=== PATIENT | female | born 1975 | race Caucasian/White ===

== ENCOUNTER 2020-01-28 15:54 | Outpatient (REF) | payer OTHER, SELFPAY | END 2020-01-28 15:55 | disposition home or self-care (01) | LOC: HO.LAB 15:54 | PROVIDERS: Visit Provider Internal Medicine | DX: Z20.828 Contact with and (suspected) exposure to other viral communicable diseases (principal) | CPT/HCPCS: C9803; U0003 ==

== ENCOUNTER → 2020-03-24 15:14 | Outpatient (BNVA) | payer OTHER, SELFPAY | PROVIDERS: PCP Registered Nurse; Visit Provider Student in an Organized Health Care Education/Training Program | DX: Z76.89 Persons encountering health services in other specified circumstances (principal) ==

== ENCOUNTER → 2020-04-15 15:26 | Outpatient (BNVA) | payer OTHER, SELFPAY | PROVIDERS: PCP Registered Nurse; Visit Provider Student in an Organized Health Care Education/Training Program ==

== ENCOUNTER 2020-04-23 10:07 | Outpatient (REF) | payer OTHER, SELFPAY ==
--- NOTE | 2020-04-23 10:11 | EMG_ITS ---
Bilateral median and ulnar motor and sensory studies were performed. Bilateral radial sensory studies were performed and paraspinal muscles were tested. IMPRESSION: [id number] bilateral median neuropathy across carpal tunnel. MD CARMELITA Pedraza/LIBERTY / [id number]
== END 2020-04-23 10:08 | disposition home or self-care (01) ==
LOC: HO.NEURO 10:07
PROVIDERS: Visit Provider Student in an Organized Health Care Education/Training Program
DX: Z13.89 Encounter for screening for other disorder (principal)

== ENCOUNTER → 2020-05-07 14:16 | Outpatient (BNVA) | payer OTHER, SELFPAY | PROVIDERS: PCP Registered Nurse; Visit Provider Student in an Organized Health Care Education/Training Program | DX: G56.03 Carpal tunnel syndrome, bilateral upper limbs (principal) | CPT/HCPCS: 99212 ==

== ENCOUNTER → 2020-05-19 12:43 | Outpatient (BNVA) | payer OTHER, SELFPAY | PROVIDERS: PCP Registered Nurse; Visit Provider Orthopaedic Surgery | DX: G56.02 Carpal tunnel syndrome, left upper limb (principal); G56.01 Carpal tunnel syndrome, right upper limb | CPT/HCPCS: 99202 ==

== ENCOUNTER 2020-06-04 12:28 | Day surgery (SDC) | payer OTHER, SELFPAY ==
[2020-06-03 10:21] VITALS: BMI 27.8
--- NOTE | 2020-06-04 13:03 | W.PM.OPN ---
Operative Note Operative Note Date of Service: 06/04/20 Narrative: Preop diagnosis: 1. Right Carpal tunnel syndrome Postop diagnosis: 1. Right Carpal tunnel syndrome Procedure: 1. Right Carpal tunnel release Surgeon: Kelli Mills MD Anesthesia: local block using 1% lidocaine with epinephrine Findings: Thickened transverse carpal ligament. EBL: Less than 5 mL Specimens: None Complications: None Disposition: Brought to recovery room in stable condition Plan: Follow-up for 7-10 days for wound check and suture removal Indications: The patient is 44 years old, with right carpal tunnel syndrome that has been unresponsive to nonoperative management. The risks and benefits of operative treatment including but not limited to risk of damage to blood vessels, nerves, tendons, infection, persistent pain, persistent symptoms, or possible need for additional surgery were discussed with the patient and the patient wishes to proceed with surgery. Procedure: Once consent was obtained a local block was performed using a combination of 1% lidocaine with epinephrine. The patient was then brought back to the operating suite and placed on the operative table in supine position. A tourniquet was applied to the proximal aspect of the right upper extremity and the limb was prepped and draped in a standard surgical fashion. Once assured that we had a good block, a 1.5 cm longitudinal incision was made centered over the right carpal tunnel. The incision was made through the skin to the subcutaneous tissues using a #15 blade. Dissection was made down to the level of the transverse carpal ligament with care being taken to protect the palmar cutaneous nerve. Once the transverse carpal ligament was clearly visualized, a longitudinal incision was made in the transverse carpal ligament 1st using a #15 blade, then using tenotomy scissors under direct visualization. Care was taken to look for and protect the motor branch of the median nerve when seen in this area. Once satisfied with our carpal tunnel release the wound was copiously irrigated with normal saline and hemostasis was obtained with a brief period of local pressure. The skin edges were reapproximated with some 5.0 nylon suture material and a sterile dressing was applied. The patient appears to have tolerated the procedure well and with no complications. All digits were well vascularized at the conclusion of the case.
--- NOTE | 2020-06-04 14:47 | MHC.SHP ---
Pre-Procedural Eval Section B Chief Complaint: carpal tunnel Allergies: Allergies Allergy/AdvReac Type Severity Reaction Status Date / Time No Known Allergies Allergy Verified 05/19/20 12:56 Plan I have reviewed the history and physical and performed a pertinent physical examination on my patient. No changes have occurred unless specified.
[2020-06-04 15:37] VITALS: BP 107/68; PULSE 60; RESP 17; TEMP 36.9; O2SAT 100
== END 2020-06-04 15:43 ==
LOC: HO.SSS 12:29
PROVIDERS: Visit Provider Orthopaedic Surgery
PROC: (CPT 64721; principal; 2020-06-04 14:10)
DX: G56.01 Carpal tunnel syndrome, right upper limb (principal); R76.0 Raised antibody titer; F32.9 Major depressive disorder, single episode, unspecified
CPT/HCPCS: 64721

== ENCOUNTER → 2020-06-16 12:58 | Outpatient (BNVA) | payer OTHER, SELFPAY | PROVIDERS: Visit Provider Orthopaedic Surgery | DX: G56.01 Carpal tunnel syndrome, right upper limb (principal) | CPT/HCPCS: 99212 ==

== ENCOUNTER 2020-08-12 13:20 | Outpatient (REF) | payer OTHER, SELFPAY ==
--- NOTE | ~2020-08-12 | XR_ITS ---
EXAMINATION: XR WRIST, RIGHT XR HAND, RIGHT CLINICAL INFORMATION: Pain. COMPARISON: Right hand radiographs dated 12/27/2018 TECHNIQUE: AP, oblique, and lateral views of the right wrist. AP, oblique, and lateral views of the right hand. FINDINGS: Right Wrist: No acute fracture or dislocation. No joint space narrowing or marginal osteophytes. No osseous erosion. No abnormal soft tissue calcification. Right Hand: No fracture or dislocation. Normal carpal alignment. No significant joint space narrowing or marginal osteophytes. No osseous erosion. No periarticular osteopenia. No abnormal soft tissue calcification. XR/XR hand RT min 3V IMPRESSION: Right Wrist: Unremarkable examination. Right Hand: Unremarkable examination.
--- NOTE | ~2020-08-12 | XR_ITS ---
EXAMINATION: XR WRIST, RIGHT XR HAND, RIGHT CLINICAL INFORMATION: Pain. COMPARISON: Right hand radiographs dated 12/27/2018 TECHNIQUE: AP, oblique, and lateral views of the right wrist. AP, oblique, and lateral views of the right hand. FINDINGS: Right Wrist: No acute fracture or dislocation. No joint space narrowing or marginal osteophytes. No osseous erosion. No abnormal soft tissue calcification. Right Hand: No fracture or dislocation. Normal carpal alignment. No significant joint space narrowing or marginal osteophytes. No osseous erosion. No periarticular osteopenia. No abnormal soft tissue calcification. XR/XR wrist RT min 3V IMPRESSION: Right Wrist: Unremarkable examination. Right Hand: Unremarkable examination.
== END 2020-08-12 13:21 | disposition home or self-care (01) ==
LOC: HO.HOSX 13:20
PROVIDERS: Visit Provider Orthopaedic Surgery
DX: Z48.811 Encounter for surgical aftercare following surgery on the nervous system (principal); S63.501A Unspecified sprain of right wrist, initial encounter
CPT/HCPCS: 73110; 73130; 99212

== ENCOUNTER → 2020-08-26 13:36 | Outpatient (BNVA) | payer OTHER, SELFPAY | PROVIDERS: Visit Provider Orthopaedic Surgery | DX: G56.03 Carpal tunnel syndrome, bilateral upper limbs (principal); M65.4 Radial styloid tenosynovitis [de Quervain] | CPT/HCPCS: 20550; 99212; J1100 ==

== ENCOUNTER → 2020-09-23 13:11 | Outpatient (BNVA) | payer OTHER, SELFPAY | PROVIDERS: Visit Provider Orthopaedic Surgery | DX: M25.531 Pain in right wrist (principal); M65.4 Radial styloid tenosynovitis [de Quervain]; G56.02 Carpal tunnel syndrome, left upper limb | CPT/HCPCS: 99212 ==

== ENCOUNTER → 2021-07-13 07:56 | Outpatient (RCR) | payer OTHER, SELFPAY ==
--- NOTE | 2020-02-19 16:01 | MHC.OT.DC ---
[address] [phone] F: [phone] Occupational Therapy Discharge Note Provider: DR. CORADO Diagnosis: BILATERAL CARPAL TUNNEL SYNDROME Date of Surgery: 02/19/20 Date of Evaluation: 12/31/19 Date of Discharge: 02/19/20 Treatments to Date: 9 Cancellations to Date: 0 No Shows to Date: 0 Discharge Status: Independent with HEP Discharge Summary: Pt REPORTS INC PAIN WITH OVER TIME WORK ..2 EXTRA HRS DAILY. DEC PAIN ON DAYS OFF. INDEP WITH HEP AND NIGHT CTS SPLINTS WITHOUT IMPROVEMENT . HAS NO SICK TIME ON THIS JOB 4 MONTHS. PT HAS A FOLLOW UP WITH MD IN NEXT MONTH. THUMB OA [facility] PAIN CONTRIBUTING. Electronically Signed By: JOS PARIKH OT CHT CLT Reviewed/agree with student documentation: N/A Therapist: Please Sign and return to therapist, thank you for your referral.
== END | disposition home or self-care (01) ==
LOC: HO.OT 12-31 15:08
PROVIDERS: PCP Registered Nurse; Visit Provider Student in an Organized Health Care Education/Training Program
DX: G56.03 Carpal tunnel syndrome, bilateral upper limbs (principal)
CPT/HCPCS: 97014; 97035; 97110; 97112; 97140; 97165; 97760

== ENCOUNTER 2022-10-19 14:24 | Outpatient (AMB) | payer OTHER, SELFPAY ==
--- NOTE | 2022-10-19 14:35 | MHC.OFFVIS ---
Intake Intake Visit Reasons: New Prob- Lt CTS wants inj and discuss surgery Allergies No Known Allergies Allergy (Verified 09/23/20 14:00) HPI New Prob- Lt CTS wants inj and discuss surgery HPI Details 47-year-old female who presents to the office today for evaluation of left-hand. She continues to experience numbness in the left hand which is getting worse with activity. EMG from 2020: [id number] bilateral median neuropathy across carpal tunnel. PFSH Medical History CARMELO positive Anxiety Bilateral carpal tunnel syndrome Depression Surgical History History of partial hysterectomy Hx of section Family History Mother HTN (hypertension) Asthma Social History Alcohol intake: current Advance Directives Date on File: 12/31/19 Current occupation: rt handed Review of Systems Const All systems reviewed & are unremarkable except as noted in HPI and below Physical Exam Extrem Other: Left wrist: Normal to inspection. Tenderness over the carpal canal. Numbness and tingling over the median nerve distribution of the right hand. Able to make a full fist and fully extend all fingers. Positive Tinel's. Assessment & Plan Assessment & Plan (1) Carpal tunnel syndrome of left wrist: Code(s): G56.02 - Carpal tunnel syndrome, left upper limb Plan We discussed options which include conservative vs operative treatment. Since the patient has been symptomatic for several months and it is impacting their daily life, the decision was made to undergo right carpal tunnel release. We discussed risk, benefits and alternatives. Risk including but not limited to infection, weakness, stiffness, ongoing numbness or tingling. The patient does understand all this and would like to proceed with left carpal tunnel release with Dr. Mills. They will be booked accordingly. Patient Instructions: Scribed for El Castellano PA-C, by Jeyson Pop medical care manager, on 10/19/2022 at 3:00 PM EST. I, El Castellano PA-C, have personally reviewed and agree with the information entered by the scribe. Coding Level of Care Code Est Pt Level 3 (98437) Diagnoses Carpal tunnel syndrome of left wrist G56.02
== END 2022-10-19 14:49 | disposition home or self-care (01) ==
PROVIDERS: PCP Registered Nurse; Visit Provider Physician Assistant
DX: G56.02 Carpal tunnel syndrome, left upper limb (principal)
CPT/HCPCS: 99214

== ENCOUNTER → 2022-10-19 14:24 | Outpatient (BNVA) | payer OTHER, SELFPAY | PROVIDERS: PCP Registered Nurse; Visit Provider Physician Assistant ==

== ENCOUNTER 2024-05-27 14:20 | Emergency (ER) | payer OTHER, SELFPAY ==
[2024-05-27 15:10] VITALS: BP 111/57; PULSE 73; RESP 20; TEMP 37; O2SAT 100; BMI 21.6
--- NOTE | 2024-05-27 15:14 | ED.GENADULT ---
HPI - General Adult General Chief complaint: Abdominal Pain Stated complaint: abd pain Time Seen by Provider: 05/27/24 22:08 Source: patient and RN notes reviewed Mode of arrival: ambulatory Limitations: no limitations History of Present Illness ED Provider: Katy ANDRESW narrative: 48-year-old female presents for evaluation of upper abdominal pain. Patient reports she has had the pain for the last 3 days. She was some associated nausea but no vomiting. She describes her pain as burning in nature She denies any history abdominal surgeries No other complaints or concerns She denies excessive alcohol abuse, NSAID abuse Related Data Previous Rx's ?Medication ?Instructions ?Recorded hydrocodone 5 mg-acetaminophen 325 1 tab PO Q4-6H PRN pain #5 tabs 06/04/20 mg tablet ibuprofen 600 mg tablet 600 mg PO Q8H PRN pain #20 tabs 06/16/20 omeprazole 20 mg capsule,delayed 20 mg PO DAILY #14 caps 05/27/24 release Allergies Allergy/AdvReac Type Severity Reaction Status Date / Time No Known Allergies Allergy Verified 05/27/24 15:13 Review of Systems Constitutional: Constitutional: Denies body ache(s), Denies chills, Denies fever(s) and Denies headache(s) Eyes: Eyes: Denies blurry vision ENT: Denies vertigo, Denies dizziness and Denies headache(s) Cardiovascular: Cardiovascular: Denies chest pain and Denies dyspnea Respiratory: Respiratory: Denies cough and Denies dyspnea Gastrointestinal: Gastrointestinal: Reports abdominal pain, Reports nausea and Denies vomiting Musculoskeletal: Musculoskeletal: Denies back pain Integumentary/Breasts: Skin/Breast: Denies rash Neurologic: Denies vertigo, Denies dizziness and Denies headache(s) Psychiatric: Psychiatric: Denies anxiety PMFSH Past Medical History Medical History CARMELO positive Anxiety Bilateral carpal tunnel syndrome Depression Surgical History History of partial hysterectomy Hx of section Family History Family History Mother HTN (hypertension) Asthma Social History Social History Alcohol intake: current Smoked in Last 30 Days: No Use of substances other than those prescribed or required for medical reasons: Yes Substance Use Type: Marijuana Advance Directives: No Advance Directives Information Provided: No Advance Directives Date on File: 12/31/19 Patient : No Current occupation: rt handed Physical Exam ED Vital Signs: Vital Signs - 24 hr 05/27/24 15:10 05/27/24 21:58 Temperature 98.6 F 97.3 F Pulse Rate 73 70 Respiratory Rate 20 20 Blood Pressure 111/57 L 162/74 H Pulse Oximetry 100 97 Oxygen Delivery Method Room Air Room Air BMI result Body Mass Index 21.6 Const General: healthy appearing, comfortable, no acute distress, alert and awake Nutritional Appearance: well nourished Orientation/consciousness: patient oriented x3 HENMT Head: Yes normocephalic and Yes atraumatic Eyes Eyelids: Yes eyelids normal Conjunctivae: conjunctivae normal Sclerae: sclerae normal Corneas: corneas normal Pupils: Equal, round and reactive pupils present EOM: EOMs intact bilaterally Neck Neck: Yes full ROM Resp Effort & Inspection: normal respiratory effort, able to speak in complete sentences and not labored GI Inspection: No distended Palpation (GI): Soft to palpation, not firm, Tenderness to palpation present (GI) in the epigastrum and in the LUQ; not in the LLQ, not in the RLQ and not in the RUQ, no guarding and not rigid Skin General skin exam: elasticity normal Neuro General: patient oriented x3 Cranial nerves: Yes Equal, round and reactive pupils present and Yes Bilaterally intact EOM present Cognition (Neuro): normal cognition Extrem Other: Moving all extremities well without any obvious deformities Course Course Course Narrative: This is a rapid medical exam performed by Ariel May NP: Additional HPI, ROS, PE not included below will be deferred to primary provider. Patient is a 48-year-old female presenting to the emergency department from urgent care with complaint of epigastric pain since Monday, reports abdominal distention, belching and flatulence, worse to left upper quadrant. Plan: Labs Medications Administered Discontinued Medications Generic Name Dose Route Start Last Admin Trade Name Freq PRN Reason Stop Dose Admin Al Hydroxide/Mg Hydroxide 30 ml 05/27/24 22:52 05/27/24 23:05 Magnesium Hydrox/Alum Hydrox 30 Ml Oral.Susp PO 05/27/24 22:53 30 ml ONCE ONE Administration Lidocaine HCl 15 ml 05/27/24 22:52 05/27/24 23:05 Lidocaine Hcl Viscous 2 % 15 Ml Solution MUCOUS MEM 05/27/24 22:53 15 ml ONCE ONE Administration Ondansetron HCl 4 mg 05/27/24 22:52 05/27/24 23:02 Ondansetron Odt 4 Mg Tab.Marcos KAT 05/27/24 22:53 4 mg ONCE ONE Administration Medical Decision Making Medical Decision Making [facility] Narrative: 48-year-old female with past medical history as above presents for evaluation of upper abdominal pain described as burning in nature. She was left upper quadrant abdominal pain with tenderness. She has no right upper quadrant tenderness and a negative Youngblood's sign. Her labs are reassuring, she has no leukocytosis, no anemia. Shift, renal function electrolytes, and LFTs are all within normal limits. No evidence of biliary obstruction. The patient's pain is most consistent with gastritis, we will treat with a GI cocktail. I do not see any indication for emergent imaging at this time. Low suspicion for infectious process/obstruction Differential Diagnosis Differential Diagnoses: The differential diagnosis associated with the presentation includes Gastritis Gastroenteritis Biliary colic Abdominal pain Lab Data [facility] Lab Attestation statement: I reviewed the patient's lab results. As above 05/27/24 15:23 05/27/24 15:23 Labs: Lab Results 05/27/24 Range/Units 15:23 WBC 6.2 (4.8-10.8) X10*3/uL RBC 5.24 (4.20-5.50) X10*6/uL Hgb 15.3 (12.0-16.0) g/dl Hct 45.4 (37.0-47.0) % MCV 86.6 (80.0-98.0) fL MCH 29.2 (27.0-33.0) pg MCHC 33.7 (31.0-35.0) g/dl RDW 11.9 (11.0-16.0) % Plt Count 220 (160-400) X10*3/uL MPV 9.5 (9.4-12.3) fL Immature Gran % (Auto) 0.3 (0.0-0.4) % Neut % (Auto) 63.0 (45-73) % Lymph % (Auto) 30.3 (20-40) % [place] % (Auto) 5.6 (2-11) % Eos % (Auto) 0.5 (0-4) % Baso % (Auto) 0.3 (0-2) % Lymph # (Auto) 1.9 (1.2-4.9) X10*3/uL [place] # (Auto) 0.4 (0.1-1.2) X10*3/uL Eos # (Auto) 0.0 (0.0-0.4) X10*3/uL Baso # (Auto) 0.0 (0.0-0.2) X10*3/uL Abs Immat Gran (auto) 0.02 (0.00-0.03) X10*3/uL Absolute Neuts (auto) 3.9 (2.0-8.3) x10*3/uL Absolute Nucleated RBC 0.000 (0.0-0.012) X10*3/uL Nucleated RBC % (auto) 0.0 (0.0-0.2) /100WBC Sodium 143 (135-145) mmol/L Potassium 4.6 (3.3-5.1) mmol/L Chloride 107 (96-108) mmol/L Carbon Dioxide 28 (22-29) mmol/L Anion Gap 13 (12-20) BUN 11 (9-16) mg/dL Creatinine 0.75 (0.5-1.4) mg/dL Estim Creat Clear Calc 87.7 Estimated GFR > 60 Random Glucose 92 (60-115) mg/dL Calcium 9.9 (8.4-10.2) mg/dL Total Bilirubin 0.4 (0.0-1.0) mg/dL AST 24 (5-31) U/L ALT 27 (0-31) U/L Alkaline Phosphatase 50 (39-117) U/L Total Protein 8.0 (6.5-8.0) g/dL Albumin 4.6 (3.5-5.0) g/dL Beta HCG, Quant 3 mIU/mL Urine Color Yellow Urine Appearance Clear Urine pH 5.5 (5.0-9.0) Ur Specific [place] 1.010 (1.005-1.025) Urine Protein Negative (Neg-Trace) mg/dL Urine Glucose (UA) Negative (Negative) mg/dL Urine Ketones Negative (Negative) mg/dL Urine Blood Trace H (Negative) Urine Nitrite Negative (Negative) Ur Leukocyte Esterase Negative (Negative) Urine RBC 0-2 (0-2) /HPF Urine WBC 0-5 (0-5) /HPF Ur Squamous Epith Cells 0-2 (0-2) /HPF Urine Bacteria None Seen (None Seen) Hyaline Casts 0-2 (0-2) /LPF Discharge Plan Discharge Clinical Impression: Abdominal pain Patient Disposition: Home, Self-Care Instructions: Abdominal Pain (ED) Additional Instructions: Your symptoms are most consistent with gastritis or peptic ulcer disease. I recommend that you follow-up with GI Take omeprazole 20 mg daily for the next 2 weeks. Follow-up with your primary doctor, return for new or worsening symptoms Prescriptions: New omeprazole 20 mg capsule,delayed release(DR/EC) 20 mg PO DAILY Qty: 14 0RF No Action hydrocodone-acetaminophen 5-325 mg tablet 1 tab PO Q4-6H PRN (Reason: pain) Qty: 5 0RF ibuprofen 600 mg tablet 600 mg PO Q8H PRN (Reason: pain) Qty: 20 0RF Referrals: Edgar Tinajero MD [Physician] - (gastritis) Print Language: Serbian
[2024-05-27 15:29] LABS: Basophils Percent Auto 0.3 % (0-2); Eosinophils Percent Auto 0.5 % (0-4); Hematocrit 45.4 % (37.0-47.0); Hemoglobin 15.3 g/dl (12.0-16.0); Imm Gran Abs Auto 0.02 X10*3/uL (0.00-0.03); Imm Gran Pct Auto 0.3 % (0.0-0.4); Lymphocytes Absolute Auto 1.9 X10*3/uL (1.2-4.9); Lymphocytes Percent Auto 30.3 % (20-40); MANUAL DIFF FLAG NO; Mean Corpuscular HGB Conc 33.7 g/dl (31.0-35.0); Mean Corpuscular Hemoglobin 29.2 pg (27.0-33.0); Mean Corpuscular Volume 86.6 fL (80.0-98.0); Mean Platelet Volume 9.5 fL (9.4-12.3); Monocytes Absolute Auto 0.4 X10*3/uL (0.1-1.2); Monocytes Percent Auto 5.6 % (2-11); Neutrophils Absolute Auto 3.9 x10*3/uL (2.0-8.3); Platelet Count 220 X10*3/uL (160-400); Red Blood Count 5.24 X10*6/uL (4.20-5.50); Red Cell Distribution Width 11.9 % (11.0-16.0); White Blood Count 6.2 X10*3/uL (4.8-10.8)
[2024-05-27 15:33] LABS: Appearance Urine Clear; Color Urine Yellow; Glucose Urine UA Negative (Negative); Leukocyte Esterase Urine Negative (Negative); Nitrite Urine Negative (Negative); PH 5.5 (5.0-9.0); UMIC TRIGGER UACC YES; Urine Blood Trace (Negative); Urine Ketones Negative (Negative); Urine Protein Negative (Neg-Trace)
[2024-05-27 15:36] LABS: Bacteria Urine None Seen (None Seen); Hyaline Casts Urine 0-2 /LPF (0-2); RBC Urine 0-2 /HPF (0-2); Squamous Epithelial Cell Urine 0-2 /HPF (0-2); WBC Urine 0-5 /HPF (0-5)
[2024-05-27 15:49] LABS: HCG Quantitative 3 mIU/mL
[2024-05-27 15:50] LABS: Alanine Aminotransferase 27 U/L (0-31); Albumin Level 4.6 g/dL (3.5-5.0); Alkaline Phosphatase 50 U/L (39-117); Anion Gap 13 (12-20); Aspartate Amino Transferase 24 U/L (5-31); Bilirubin Total 0.4 mg/dL (0.0-1.0); Blood Urea Nitrogen 11 mg/dL (9-16); Calcium 9.9 mg/dL (8.4-10.2); Carbon Dioxide 28 mmol/L (22-29); Chloride 107 mmol/L (96-108); Creatinine Clr Calc Pharmacy 87.7; Estimated Glomerular Filt Rate > 60; Glucose Random 92 mg/dL (60-115); Potassium 4.6 mmol/L (3.3-5.1); Sodium 143 mmol/L (135-145)
[2024-05-27 21:58] VITALS: BP 162/74; PULSE 70; RESP 20; TEMP 36.3; O2SAT 97
[2024-05-27] MEDS: Ondansetron ODT 4 MG TAB.RAPDIS TRANSLINGU (23:02)
[2024-05-27] MEDS: Lidocaine HCl Viscous 2 % 15 ML SOLUTION MUCOUS MEM (23:05)
[2024-05-27] MEDS: Magnesium Hydrox/Alum Hydrox 30 ML ORAL.SUSP PO (23:05)
[2024-05-27 23:38] VITALS: BP 131/73; PULSE 50; RESP 17; TEMP 36.9; O2SAT 99
== END 2024-05-27 23:39 | disposition home or self-care (01) ==
PROVIDERS: Registered Nurse Emergency; Emergency Provider Emergency Medicine
DX: R10.12 Left upper quadrant pain (principal); R10.10 Upper abdominal pain, unspecified; R10.816 Epigastric abdominal tenderness; R11.0 Nausea; R10.2 Pelvic and perineal pain
CPT/HCPCS: 36415; 80053; 81001; 84702; 85025; 99284

== ENCOUNTER 2025-01-21 12:40 | Outpatient (AMB) | payer OTHER, SELFPAY ==
--- NOTE | 2025-01-21 12:50 | A.OFFVIS_ITS ---
Vital Signs 01/21/25 12:53 Height 5 ft 2 in Weight 137 lb BMI 25.1 BP 107/63 Blood Pressure Location Lt brachial Position Sitting Pulse 99 Intake Visit Reasons: gastritis Intake Note: Patient new consult for gastritis Patient cc: burning sensation on and off, patient change her diet for couples month, denies any other GI issues. Electrical Continuity Inspector Required: Yes Accompanied by: Self / Same As Patient Allergies No Known Allergies Allergy (Verified 12/17/24 13:23) Medication List - Last Reconciled 01/21/25 by Juliane Tillman CNP diphenhydramine HCl (Allergy Relief (diphenhydramine)) 50 mg PO BEDTIME PRN HPI HPI gastritis: Details: Patient is a 49-year-old female without significant PMH. Referred by PCP for further evaluation of acid reflux. Patient presents for GI evaluation of persistent sensation of fullness after minimal food intake, ongoing since late 2023 to early 2024 with an acute exacerbation in May 2024 leading to an ER visit and a diagnosis of gastritis. Initial symptoms included severe epigastric burning, pain lasting five days, and vomiting. Omeprazole provided some relief during a two-week course, while a GI cocktail in the ER was notably effective. Following dietary modification (avoida nce of seasonings, citrus, red meat, juice, soda), epigastric pain subsided but constant early satiety persists. Denies diarrhea, reports daily soft BM 2?3x/day without blood or incomplete evacuation. No recent weight gain; notes overall weight decrease since 2020, partly associated with psychosocial stress (recent depression after separation). Reports episodic NSAID (ibuprofen) use (800 mg, ~2x/week, several months), discontinued recently. OTC sleep aid (likely diphenhydramine per product description, 25 mg, 1?2 tabs, not daily), and Mirna (antacid-type agent) used PRN for severe symptoms. H. pylori breath test negative per PCP. Reports hypercholesterolemia, vitamin B and D deficiency, per recent labs. No current/recent medications except per med list. No family hx of GI malignancies; paternal aunt with hx of breast and splenic cancer. Patient denies: fever/chills, n/v, appetite changes, regurgitation, dysphasia, unintentional wt loss or melena/hematochezia. Social hx: -ETOH use, 3-4 beers/4-5 months, cessation since 05/2024 -smokes marijuana daily, denies recreational drug use -former smoker, cessation 2018 - family hx as below -denies personal hx of CA - significant cardiopulmonary history -tolerated anesthesia in the past without difficulty. [facility] Medical History (Updated 01/22/25 @ 12:12 by Juliane Tillman CNP) Colon cancer screening Acid reflux CARMELO positive Depression Anxiety Bilateral carpal tunnel syndrome Surgical History (Updated 01/21/25 @ 12:52 by Lorie Pickett) History of carpal tunnel surgery of right wrist Hx of breast augmentation History of partial hysterectomy Hx of section Family History (Updated 01/21/25 @ 13:08 by Juliane Tillman CNP) Mother HTN (hypertension) Asthma Paternal Aunt Splenic cancer Breast cancer Social History Alcohol intake: current Substance Use Type: Marijuana Advance Directives Date on File: 12/31/19 Current occupation: rt handed Review of Systems Const Reports as per HPI ENT Reports as per HPI Card Reports as per HPI Resp Reports as per HPI GI Reports as per HPI Reports as per HPI Physical Exam Vital Signs: Last Vital Signs Pulse 99 01/21/25 12:53 BP 107/63 01/21/25 12:53 BMI result Body Mass Index 25.1 Const General: healthy appearing, no acute distress and well developed Nutritional Appearance: average body habitus Orientation/consciousness: patient oriented x3 HEENT Head: Yes normal to inspection, Yes normocephalic and Yes atraumatic Face and sinus: Yes normal facial exam Eyes General: appearance normal, both eyes and all related structures Neck Neck: Yes normal visual inspection Resp Effort & Inspection: normal respiratory effort, able to speak in complete sentences, no tracheal deviation and symmetric chest movement Cardio Jugular venous distension: no JVD GI Inspection: Yes normal to inspection and No distended Palpation (GI): Soft to palpation, not firm, nontender and No hepatosplenomegaly present Auscultation: normal bowel sounds Neuro General: patient oriented x3 Gait exam (Neuro): Normal gait present Psych Appearance: grossly normal Mental Status: mental status grossly normal Speech and movement: Normal speech and movement present Affect: normal affect Attitude: cooperative Thought process: Normal thought process present Thought content: Normal thought content present Insight: Good insight present (Psych) Judgement: Good judgement present (Psych) Assessment & Plan Assessment & Plan (1) Acid reflux: Code(s): K21.9 - Gastro-esophageal reflux disease without esophagitis Category: Medical Qualifiers: Esophagitis presence: esophagitis presence not specified Qualified Code(s): K21.9 - Gastro-esophageal reflux disease without esophagitis Plan: Persistent upper GI symptoms (fullness, early satiety, history of gastritis, prior dx, NSAID use, psychosocial contributors) Additional Testing: - EGD (upper endoscopy): Assess for ongoing gastritis, ulcers, masses, or delayed gastric emptying - review outside labs from PCP (requested) - H. pylori: Breath test negative; no further testing unless clinical concern Medication Management: - Continue omeprazole 20 mg, daily use advised. PRN per pt preference - Avoid NSAIDs; recommend acetaminophen if analgesia needed - Encourage review/limitation of OTC sleep aids (confirm ingredients) - Limit use of antacid agents (Mirna) to avoid overlap/overuse Lifestyle Recommendations: - Maintain bland, low-irritant diet (avoid triggers identified above) - Avoid tight/constrictive clothing - Continue physical activity as tolerated - Reduce/avoid alcohol, minimize marijuana if possible - Address psychosocial stress, discuss counseling/behavioral supports as needed Follow-Up: - After endoscopy; timing per procedure scheduling - Monitor for alarm symptoms (weight loss, persistent vomiting, occult GI bleeding) (2) Colon cancer screening: Code(s): Z12.11 - Encounter for screening for malignant neoplasm of colon Category: Medical Plan: Due for index screening colonoscopy; pt prefers colonoscopy over stool based screening Additional Testing: - Colonoscopy scheduled for cancer screening - No stool kit required unless pt changes preference Medications: -prescriptions for laxative tablets and MiraLax sent to pharmacy; instructions for Gatorade purchase and clear liquid diet given. Patient educated on scheduling process, procedure preparation, including avoiding certain foods and ensuring clear liquid intake Advised on necessity for ride post-procedure due to sedation. Plan Follow-up after colonoscopy or sooner as needed Time: I spent a total of 45 minutes on the date of encounter which includes: Preparing to see the patient (reviewed previous documentation, test results and medical history) Performing a medically appropriate exam and/or evaluation Ordering medications, tests, and procedures Documenting clinical information in the health record Orders: Referrals GI Procedure Notification K21.9 - Gastro-esophageal reflux disease without esophagitis, Z12.11 - Encounter for screening for malignant neoplasm of colon Medications: New bisacodyl Take per colonoscopy instructions 20 mg (4 x 5 mg) PO ONCE 4 tabs 0RF polyethylene glycol 3350 (Miralax) per colonoscopy prep instructions 238 grams PO ONCE 238 grams 0RF Coding Level of Care Code New Pt New Pt Level 4 (53476) Patient Type New Diagnoses Gastroesophageal reflux disease, unspecified whether esophagitis present K21.9 Esophagitis presence: esophagitis presence not specified Colon cancer screening Z12.11
[2025-01-21 12:53] VITALS: BP 107/63; PULSE 99; BMI 25.1
--- OUTSIDE RECORDS SUMMARY | 2025-01-21 14:27 | XMS_ITS | Clinical Summary ---
Author Organization [facility] [address] [facility] [place] Address [address] [place] [address] Phone Care Team Providers Care Talent Acquisition Manager Name Role Phone Jose Enrique Vieira MD Primary Care Provider [phone]- [phone] Encounters Date Type Department Care Team Description 01/14/2025 2:51 PM EST - 01/14/2025 11:59 PM EST Hospital Encounter [facility] [address] [place] [address] Encounter for screening mammogram for malignant neoplasm of breast Discharge Disposition: Home or Self Care 12/25/2024 Telephone Gastroenterology - [address] [place] [id number] Rafa Smith MD from Last 3 Months Surgical History Surgery Date Site/Laterality Comments BREAST ENHANCEMENT SURGERY W IMPLANT HYSTERECTOMY Family History Medical History Relation Name Comments Breast cancer Father's Sister Breast cancer Paternal Grandmother Relation Name Status Comments Father's Sister Alive Paternal Grandmother Social History Tobacco Use Types Packs/Day Years Used Date Smoking Tobacco: Never Smokeless Tobacco: Never Alcohol Use Standard Drinks/Week Comments No 0 (1 standard drink = 0.6 oz pur e alcohol) Comments No Sex and Gender Information Value Date Recorded Sex Assigned at Not on file Legal Sex Female 2:57 AM EST Gender Identity Not on file Sexual Orientation Not on file Obstetrics History Para Term AB IAB SAB Ectopic Multiple Livin g Live Births 2 Last Filed Vital Signs Vital Sign Reading Time Taken Comments Blood Pressure - - Pulse - - Temperature - - Respiratory Rate - - Oxygen Saturation - - Inhaled Oxygen Concentration - - Weight 59 kg (130 lb) 01/14/2025 3:04 PM EST Height 157.5 cm (5' 2 ) 01/14/2025 3:04 PM EST Body Mass Index 23.78 01/14/2025 3:04 PM EST Plan of Treatment Health Maintenance Due Date Last Done Comments Colorectal Cancer Screening: Colonoscopy 1977 Cervical Cancer Screening: Pap Smear 1998 Hepatitis B Vaccines (3 of 3 - 19+ 3-dose series) 03/29/2022 02/01/2022, 07/13/2021 Hepatitis C Screening 12/21/2023 Social Influencers of Health Screening 12/21/2023 Depression Screening 03/13/2024 COVID-19 Vaccine ( season) 2024 Hypertension/CHF/CAD Annual BMP Blood Test 12/16/2025 12/16/2024, 03/31/2023 Breast Cancer Screening 01/14/2027 01/14/2025, 10/05 DTaP,Tdap,and Td Vaccines (3 - Td or Tdap) 10/11/2028 10/11/2018, 2015 Cholesterol Screening (Lipid Panel) 12/16/2029 12/16/2024, 12/16/2024, 03/31/2023, Additional history exists RSV Immunization Adult Patients (1 - 1-dose 75+ series) 2052 HIV Screening Completed 10/11/2018 Influenza Vaccine Completed 12/16/2024, 03/31/2023 HIB Vaccines Aged Out No longer eligi ble based on patient's age to complete this topic HPV Vaccines Aged Out No longer eligi ble based on patient's age to complete this topic Hepatitis A Vaccines Aged Out No long er eligible based on patient's age to complete this topic IPV Vaccines Aged Out No longer eligi ble based on patient's age to complete this topic MMR Vaccines Aged Out No longer eligi ble based on patient's age to complete this topic Meningococcal ACWY Vaccine Aged Out N o longer eligible based on patient's age to complete this topic Meningococcal B Vaccine Aged Out No l onger eligible based on patient's age to complete this topic Pneumococcal Vaccine: Pediatrics (0 to 5 Years) and At-Risk Patients (6 to 49 Years) Aged Out No longer eligible based on patient's age to complete this topic RSV Immunization Patients Under 20 months Aged Out No longer eligible based on patient's age to complete this topic Varicella Vaccines Aged Out No longer eligible based on patient's age to complete this topic Procedures Procedure Name Priority Date/Time Associated Diagnosis Comments MG MAMMO DIGITAL SCREENING W DENZEL BILAT Routine 01/14/2025 3:25 PM EST Encounter for screening mammogram for malignant neoplasm of breast from Last 3 Months Results * MG Mammo Digital Screening w Denzel bilat (01/14/2025 3:25 PM EST) Anatomical Region Laterality Modality Breast Bilateral Mammography 01/14/2025 3:42 PM EST Impressions 01/14/2025 3:47 PM EST No evidence of breast malignancy. BI-RADS CATEGORY: 1 - NEGATIVE RECOMMENDATION: Screening bilateral mammogram is recommended in 1 year. Mammo Location: [facility], [address] [place] [address], [facility], . -------- FINAL REPORT -------- Dictated By: Carla Flores Dictated Date: 01/14/2025 15:42 ET Assigned Physician: Carla Flores Reviewed and Electronically Signed By: Carla Flores Signed Date: 01/14/2025 15:47 ET Workstation ID: [id number] Transcribed By: Self Edit Transcribed Date: 01/14/2025 15:42 ET Narrative 01/14/2025 3:47 PM EST CLINICAL: 49 years old, Female, routine annual exam. COMPARISON: Multiple prior studies dating back to 2019 TECHNIQUE: Bilateral MLO and CC views were obtained digitally with 3-D mammogram (digital breast tomosynthesis). Computer-aided detection was utilized in evaluation of this exam (CAD). FINDINGS: There is no evidence of suspicious mass or architectural distortion. No worrisome calcifications are evident. There has been no significant change from prior exam(s). Intact bilateral breast implants. BREAST DENSITY: B - There are scattered areas of fibroglandular density. Procedure Note Carla Flores MD - 01/14/2025 CLINICAL: 49 years old, Female, routine annual exam. COMPARISON: Multiple prior studies dating back to 2019 TECHNIQUE: Bilateral MLO and CC views were obtained digitally with 3-Dmammogram (digital breast tomosynthesis). Computer-aided detection wasutilized in evaluation of this exam (CAD). FINDINGS: There is no evidence of suspicious mass or architectural distortion. Noworrisome calcifications are evident. There has been no significantchange from prior exam(s). Intact bilateral breast implants. BREAST DENSITY: B - There are scattered areas of fibroglandular density. IMPRESSION: No evidence of breast malignancy. BI-RADS CATEGORY: 1 - NEGATIVE RECOMMENDATION: Screening bilateral mammogram is recommended in 1 year. Mammo Location: [facility], [address] [place] [address], [id number], . 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
--- OUTSIDE RECORDS SUMMARY | 2025-01-21 14:27 | XMS_ITS | Clinical Summary ---
Author Organization [facility] Address [address] [place] [address] Care Team Providers Care Rural Mail Contractor Name Role Phone Jose Enrique Vieira MD Primary Care Provider [phone] Source Comments PLEASE NOTE, if this patient is a minor, it may be UNLAWFUL to discuss sensitive information that is contained in these records (such as FAMILY PLANNING, MENTAL HEALTH or SUBSTANCE ABUSE) with the minor patient's parent or other person without the patient's specific authorization.[facility] Allergies No known active allergies Medications estradioL (VIVELLE-DOT) 0.05 mg/[address] 1 Patch onto the skin 2 times a week 24 Patch 4 4 Active estradioL (VIVELLE-DOT) 0.05 mg/[address] ONE PATCH onto THE SKIN TWICE A WEEK 8 Patch 1 5 Active diclofenac sodium (VOLTAREN) 1 % gelIndications: Acute pain of right shoulder Apply topically 2 (two) times daily 100 g 2 5 Active acetaminophen (TYLENOL) 325 mg tablet Take 2 Tablets by mouth every 6 (six) hours as needed for pain 60 Tablet 1 5 Active simethicone 125 mg capsuleIndicati ons:Indigestion Take 1 Capsule by mouth every 6 (six) hours as needed for flatulence 30 Capsule 5 Active zinc glycinate 30 mg capIndications: Low zinc level Take 30 mg by mouth daily. 90 Capsule 5 Active cyanocobalamin, vitamin B-12, 1,000 mcg SL tabletIndicatio ns:Other fatigue Place 1 Tablet under the tongue once daily. 90 Tablet 5 Active Active Problems Problem Noted Date Diagnosed Date Chronic bilateral low back pain without sciatica 09/29/2023 Endometriosis 03/31/2023 Encounters Date Type Department Care Team Description 12/21/2024 Results Follow-Up [address] [id number] Lotus Jackson FNP 12/16/2024 10:40 AM EDT Office Visit [address] [address] Lotus Jackson FNP from Last 3 Months Immunizations Immunization Administration Dates Next Due Flu, Preservative Free 03/31/2023 Hep B, Adult/Adol ([id number]/RECOMBIVAX-AD ULT) 07/13/2021 Hep B,adult,adjuvanted (HEPLISAV) 02/01/2022 Influenza (FLUBLOK),recombinant,injectable,preservative Free 12/16/2024 TDAP 10/11/2018,2015 Family History Medical History Relation Name Comments Depression Brother 3 Suicide Brother 3 2016 Unknown Father was murdered Unknown Maternal Grandfather Diabetes Maternal Grandmother Diabetes Mother Hypertension Mother Breast cancer Paternal Aunt Liver disease Paternal Aunt Unknown Paternal Grandfather Cancer Paternal Grandmother Depression Sister 1 Depression Sister 2 Depression Sister 3 Depression Sister 4 Depression Sister 5 Depression Sister 6 Depression Sister 7 Depression Sister 8 Relation Name Status Comments Brother 1 Alive Brother 2 Alive Brother 3 Father Maternal Grandfather Maternal Grandmother Mother Alive Paternal Aunt Alive Paternal Grandfather Paternal Grandmother Sister 1 Alive Sister 2 Alive Sister 3 Alive Sister 4 Alive Sister 5 Alive Sister 6 Alive Sister 7 Alive Sister 8 Alive Sister 9 Alive Sister 10 Alive Social History Tobacco Use Types Packs/Day Years Used Date Smoking Tobacco: Never Smokeless Tobacco: Never Tobacco Cessation:Counseling Given: Not Answered Alcohol Use Standard Drinks/Week Comments Not Currently 0 (1 standard drink = 0.6 oz pur e alcohol) social Social Connections Answer Date Recorded How often do you feel lonely or isolated from th ose around you? 1 09/29/2023 Financial Resource Strain Answer Date R ecorded Hard to pay for: Food 1 09/29/2023 Stress Answer Date Recorded Do you feel these kinds of stress these days? 2 09/29/2023 Physical Activity Answer Date Recorded Physical Activity 0 10/31/2018 Food Insecurity Answer Date Recorded Hard to pay for: Food 1 09/29/2023 Transportation Needs Answer Date Record ed Hard to pay for: Transportation 1 09/29/2023 Housing Stability Answer Date Recorded Hard to pay for: Rent/Mortgage payment 1 09/29/2023 Safety and Environment Answer Date Moe rded Safety 0 10/31/2018 Utilities Answer Date Recorded Hard to pay for: Utilities 1 09/28 Employment Answer Date Recorded Stress 0 09/29/2023 Comments No Sex and Gender Information Value Date Recorded Sex Assigned at Female 10/15/2018 8:30 PM PDT Legal Sex Female 11:36 AM PDT Gender Identity Female 10/15/2018 8:30 PM PDT Sexual Orientation Straight 10/15/2018 8: 30 PM PDT 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 Not on file Not on file Last Filed Vital Signs Vital Sign Reading Time Taken Comments Blood Pressure 110/71 12/16/2024 10:31 AM EDT Pulse 65 12/16/2024 10:31 AM EDT Temperature 36.9 C (98.4 F) 12/16/2024 10:31 AM EDT Respiratory Rate 16 12/16/2024 10:31 AM EDT Oxygen Saturation 99% 12/16/2024 10:31 AM EDT Inhaled Oxygen Concentration - - Weight 61.2 kg (135 lb) 12/16/2024 10:31 AM EDT Height 157.5 cm (5' 2 ) 12/16/2024 10:31 AM EDT Body Mass Index 24.69 12/16/2024 10:31 AM EDT Plan of Treatment Health Maintenance Due Date Last Done Comments HPV Screening (self-collect) 1977 HPV Screening 1977 Pap Smear 1998 Relationship Safety Screening/Counseling 10/12/2019 10/11/2018 CT Colonography 2022 Colonoscopy 2022 Colorectal Cancer Screening 2022 FIT/gFOBT 2022 Fecal DNA 2022 Flexible Sigmoidoscopy 2022 [id number] ( season) 2025 08/10/2020, 07/20/2020 Postponed from 11/11/2024 (Patient postponement) Anxiety Screening 06/24/2025 06/24/2024 Annual Wellness (Adult): Indicated (All Coverage) 12/16/2025 12/16/2024, 12/16/2024, 09/29/2023 Hypertension Screening (#1) 12/16/2025 Tobacco Screening 12/16/2025 12/16/2024 Breast Cancer Screening (Mammogram) 01/14/2027 01/14/2025, 10/04/2023 Diabetes Screening 12/17/2027 12/16/2024, 1 , 03/31/2023, Additional history exists Cervical Cancer Screening 01/26/2028 Pap + HPV 01/26/2028 01/25/2023 Imm-DTaP/Tdap/Td (3 - Td or Tdap) 10/11/2028 10/11/2018, 2015 Lipid Screening 12/16/2029 12/16/2024, 03/13, 10/11/2018 HIV Screening Completed 10/11/2018 Hepatitis C Screening Completed 10/11/2018 Syphilis Screening Discontinued 10/11/2018 Imm-Hepatitis B Discontinued 02/01/2022, 07/13/2021 Alcohol and Drug Screen Completed 06/25/19, 10/26/2023, 09/29/2023, Additional history exists Depression Annual Screen Completed 06/24/2024, 0803/2018 Imm-Influenza Completed 12/16/2024, 03/31/2023 Cervical Ablation/Cold-Knife Conization Discontinued Cervical Cryotherapy Discontinued Colposcopy Discontinued Excision/Leep Discontinued HPV Genotyping Discontinued Vaginal Pap Discontinued Vulvoscopy Discontinued Procedures Procedure Name Priority Date/Time Associated Diagnosis Comments HISTORIC MAMMOGRAM 01/14/2025 3: 00 AM EST ASSAY OF INSULIN TOTAL Routine 9:46 AM EDT Other fatigue VITAMIN B12 & FOLATE Routine 12/16/2024 11:18 AM EDT Other fatigue Hair thinning ZINC Routine 12/16/2024 11:18 AM EDT Other fatigue Hair thinning CELIAC DISEASE COMPREHENSIVE PANEL Routine 12/16/2024 11:18 AM EDT Gas pain VITAMIN D, 1,25-DIHYDROXY Routine 12/16/2024 11:18 AM EDT Other fatigue BLOOD COUNT COMPLETE AUTO&AUTO DIFRNTL WBC Routine 12/16/2024 11:18 AM EDT Routine general medical examination at a health care facility COMPREHENSIVE METABOLIC PANEL Routine 12/16/2024 11:18 AM EDT Routine general medical examination at a [facility] care facility TSH W/RFLX FREE T4 Routine 12/16/2024 11 :18 AM EDT Routine general medical examination at a [facility] care facility HEMOGLOBIN GLYCOSYLATED A1C Routine 12/16/2024 11:18 AM EDT Routine general medical examination at a [facility] care facility LIPID PANEL Routine 12/16/2024 11:18 AM EDT Routine general medical examination at a health care facility ANTIBODY HIV-1&HIV-2 SINGLE RESULT Routine 10/11/2018 11:00 AM EDT Encounter for assessment of STD exposure FTA-ABS, SERUM Routine 10/11/2018 11:00 AM EDT Chronic midline low back pain, with sciatica presence unspecified HEPATITIS A,B,C PANEL Routine 10/11/2018 11:00 AM EDT Encounter for assessment of STD exposure from Last 3 Months or Most Recently Relevant to Health Maintenance Results * HISTORIC MAMMOGRAM (01/14/2025 3:00 AM EST) 01/14/2025 3:00 AM EST Lotus Jackson [facility] [facility] IMG MAMMO Final Result * ASSAY OF INSULIN TOTAL Routine (12/24/2024 9:46 AM EDT) INSULIN 6.6 uIU/mL 12/25/2024 3:03 AM EDT [facility] Blood Blood / Unknown 12/24/2024 9 :46 AM EDT 12/25/2024 1:33 AM EDT Narrative [facility] - 12/25/2024 3:05 AM EDT SPLIT 12/16/2024 FROM [id number] FASTING:YES Reference Range < or = 18.4 . Risk: Optimal < or = 18.4 Moderate NA High >18.4 . Adult cardiovascular event risk category cut points (optimal, moderate, high) are based on Insulin Reference Interval studies performed at [facility] in 2021. . Lotus Jackson [facility] - BLOOD DRAW Final Resul t [facility] [address] [address], [facility] [address] [address] * CELIAC DISEASE COMPREHENSIVE PANEL Routine (12/16/2024 11:18 AM EDT) Pathologist [facility] INTERPRETATION SEE NOTE 12/17/2024 10:43 PM EDT [facility] TISSUE TRANSGLUTAMINASE ANTIBODY, IGA <1.0 U/mL 12/17/2024 10:43 PM EDT [facility] IMMUNOGLOBULIN A 224 47 - 310 mg/dL 12/17/2024 5:02 AM EDT [facility] Serum Blood / Unknown 12/16/2024 1 1:18 AM EDT 12/17/2024 2:49 AM EDT Narrative [facility] - 12/17/2024 11:06 PM EDT FASTING:NO PATIENT NOT FASTING; ADVISED TO RETURN FOR COLLECTION. . No serological evidence of celiac disease. . tTG IgA may normalize in individuals with celiac disease who maintain a gluten-free diet. Consider HLA DQ2 and DQ8 testing to rule out celiac disease. Celiac disease is extremely rare in the absence of DQ2 or DQ8. . Value Interpretation ----- <15.0 Antibody not detected > or = 15.0 Antibody detected . Lotus Jackson [facility] - BLOOD DRAW Final Resul t Performing Organization Address [facility] de Phone Number [facility] [address] [address], [facility] [address] [phone] * TSH W/RFLX FREE T4 Routine (12/16/2024 11:18 AM EDT) TSH W/REFLEX TO FT4 0.47 mIU/L 12/17/2024 4:33 AM EDT [facility] Blood Blood / Unknown 12/16/2024 1 1:18 AM EDT 12/17/2024 2:51 AM EDT Narrative [facility] - 12/17/2024 4:33 AM EDT FASTING:NO PATIENT NOT FASTING; ADVISED TO RETURN FOR COLLECTION. Reference Range . > or = 20 Years 0.40-4.50 . Ranges First trimester 0.26-2.66 Second trimester 0.55-2.73 Third trimester 0.43-2.91 Lotus Jackson [facility] - BLOOD DRAW Final Resul t Performing Organization Address [facility] de Phone Number [facility] [address] [address], [facility] [address] [address] * (ABNORMAL) VITAMIN D, 1,25-DIHYDROXY Routine (12/16/2024 11:18 AM EDT) VITAMIN D, 1, 25 (OH)2, TOTAL 79(H) 18 - 72 pg/mL 12/20/2024 4:10 PM EDT [facility] VITAMIN D3, 1, 25 (OH)2 79 pg/mL 12/20/2024 4:10 PM EDT [facility] VITAMIN D2, 1, 25 (OH)2 <8 pg/mL 12/20/2024 4:10 PM EDT [facility] Blood Blood / Unknown 12/16/2024 1 1:18 AM EDT 12/18/2024 12:21 PM EDT Narrative [facility] [place] - 12/20/2024 4:10 PM EDT FASTING:NO PATIENT NOT FASTING; ADVISED TO RETURN FOR COLLECTION. . Vitamin D3, 1,25(OH)2 indicates both endogenous production and supplementation. Vitamin D2, 1,25(OH)2 is an indicator of exogenous sources, such as diet or supplementation. Interpretation and therapy are based on measurement of Vitamin D,1,25(OH)2, Total. . . This test was developed and its analytical performance characteristics have been determined by [facility] [employer]. It has not been cleared or approved by the FDA. This assay has been validated pursuant to the CLIA regulations and is used for clinical purposes. . Lotus Jackson [facility] - BLOOD DRAW Final Resul t Performing Organization Address City/[facility] Co de Phone Number [facility] [place] [phone] [place], [place] , [facility] [address] [place], [place] * ZINC Routine (12/16/2024 11:18 AM EDT) ZINC 73 60 - 130 mcg/dL 12/19/2024 12:39 PM EDT [facility] Blood Blood / Unknown 12/16/2024 1 1:18 AM EDT 12/18/2024 12:21 PM EDT Narrative [facility] [place] - 12/19/2024 12:54 PM EDT FASTING:NO PATIENT NOT FASTING; ADVISED TO RETURN FOR COLLECTION. . This test was developed and its analytical performance characteristics have been determined by [employer] [place]. It has not been cleared or approved by the U.S. Food and Drug Administration. This assay has been validated pursuant to the CLIA regulations and is used for clinical purposes. . Lotus Jackson [facility] - BLOOD DRAW Final Resul t Performing Organization Address [facility] Co de Phone Number [facility] [place] [phone] [place], [place] , [facility] [place] [address] [place], [place] * VITAMIN B12 & FOLATE Routine (12/16/2024 11:18 AM EDT) Pathologist [facility] VITAMIN B12 366 200 - 1,100 pg/mL 12/17/2024 6:58 AM EDT [employer] FOLATE, SERUM 17.2 ng/mL 12/17/2024 6:58 AM EDT [employer] [facility] Blood Blood / Unknown 12/16/2024 1 1:18 AM EDT 12/17/2024 2:51 AM EDT Narrative [employer] - 12/17/2024 7:10 AM EDT FASTING:NO PATIENT NOT FASTING; ADVISED TO RETURN FOR COLLECTION. . Please Note: Although the reference range for vitamin B12 is 200-1100 pg/mL, it has been reported that between 5 and 10% of patients with values between 200 and 400 pg/mL may experience neuropsychiatric and hematologic abnormalities due to occult B12 deficiency; less than 1% of patients with values above 400 pg/mL will have symptoms. . Reference Range Low: <3.4 Borderline: 3.4-5.4 Normal: >5.4 . us Lotus Jackson [facility] - BLOOD DRAW Final Resul t Performing Organization Address [facility] Co de Phone Number [employer] [address] [place] [phone], [employer] [address] [address] * (ABNORMAL) BLOOD COUNT COMPLETE AUTO&AUTO DIFRNTL WBC Routine (12/16/2024 11:18 AM EDT) WHITE BLOOD CELL COUNT 5.5 3.8 - 10.8 Thousand/ uL 12/17/2024 10:15 AM EDT [employer] RED BLOOD CELL COUNT 5.15(H) 3.80 - 5.10 Million/u L 12/17/2024 10:15 AM EDT [employer] HEMOGLOBIN 14.9 11.7 - 15.5 g/dL 12/17/2024 10:15 AM [facility] HEMATOCRIT 46.4(H) 35.0 - 45.0 % 12/17/2024 10:15 AM [facility] MCV 90.1 80.0 - 100.0 fL 12/17/2024 10:15 AM [facility] MCH 28.9 27.0 - 33.0 pg 12/17/2024 10:15 AM [facility] MCHC 32.1 32.0 - 36.0 g/dL 12/17/2024 10:15 AM [facility] RDW 12.8 11.0 - 15.0 % 12/17/2024 10:15 AM [facility] PLATELET COUNT 248 140 - 400 Thousand/ uL 12/17/2024 10:15 AM [facility] MPV 10.8 7.5 - 12.5 fL 12/17/2024 10:15 AM [facility] ABSOLUTE NEUTROPHILS 3,031 1,500 - 7,800 cells/uL 12/17/2024 10:15 AM [facility] ABSOLUTE LYMPHOCYTES 2,041 850 - 3,900 cells/uL 12/17/2024 10:15 AM [facility] ABSOLUTE MONOCYTES 347 200 - 950 cells/uL 12/17/2024 10:15 AM [facility] ABSOLUTE EOSINOPHILS 61 15 - 500 cells/uL 12/17/2024 10:15 AM [facility] ABSOLUTE BASOPHILS 22 0 - 200 cells/uL 12/17/2024 10:15 AM [facility] NEUTROPHILS PCT 55.1 % 10:15 AM [facility] LYMPHOCYTES 37.1 % 12/17/2024 10:15 AM [facility] MONOCYTES 6.3 % 12/17/2024 10:15 AM [facility] EOSINOPHILS 1.1 % 12/17/2024 10:15 AM [facility] BASOPHILS 0.4 % 12/17/2024 10:15 AM [facility] Blood Blood / Unknown 12/16/2024 1 1:18 AM EDT 12/17/2024 9:47 AM EDT [employer] - 12/17/2024 10:16 AM EDT FASTING:NO PATIENT NOT FASTING; ADVISED TO RETURN FOR COLLECTION. For adults, a slight decrease in the calculated MCHC value (in the range of 30 to 32 g/dL) is most likely not clinically significant; however, it should be interpreted with caution in correlation with other red cell parameters and the patient's clinical condition. us Lotus Bellrian [facility] - BLOOD DRAW Final Resul t Performing Organization Address [facility] de Phone Number [employer] [address] [place] [phone], [employer] [address] [place] [phone] * HEMOGLOBIN GLYCOSYLATED A1C Routine (12/16/2024 11:18 AM EDT) HEMOGLOBIN A1C 5.4 <5.7 % 12/17/2024 12:43 PM EDT [employer] [facility] Blood Blood / Unknown 12/16/2024 1 1:18 AM EDT 12/17/2024 9:47 AM EDT [employer] - 12/17/2024 12:53 PM EDT FASTING:NO PATIENT NOT FASTING; ADVISED TO RETURN FOR COLLECTION. For the purpose of screening for the presence of diabetes: . <5.7% Consistent with the absence of diabetes 5.7-6.4% Consistent with increased risk for diabetes (prediabetes) > or =6.5% Consistent with diabetes . This assay result is consistent with a decreased risk of diabetes. . Currently, no consensus exists regarding use of hemoglobin A1c for diagnosis of diabetes in children. . According to [place] Diabetes Association (ADA) guidelines, hemoglobin A1c <7.0% represents optimal control in non- diabetic patients. Different metrics may apply to specific patient populations. Standards of Medical Care in Diabetes(ADA). . us Lotus Bellrian [facility] - BLOOD DRAW Final Resul t Performing Organization Address [facility] Co de Phone Number [employer] [address] [place] [address], [employer] [address] [place] [phone] * (ABNORMAL) LIPID PANEL Routine (12/16/2024 11:18 AM EDT) CHOLESTEROL, TOTAL 193 <200 mg/dL 12/17/2024 10:53 AM EDT [facility] HDL CHOLESTEROL 73 > OR = 50 mg/dL 12/17/2024 10:53 AM EDT [facility] TRIGLYCERIDES 83 <150 mg/dL 12/17/2024 10:53 AM EDT [facility] LDL-CHOLESTEROL 103(H) mg/dL (calc) 12/17/2024 10:53 AM EDT [facility] CHOL/HDLC RATIO 2.6 <5.0 (calc) 12/17/2024 10:53 AM EDT [facility] NON-HDL CHOLESTEROL 120 <130 mg/dL (calc) 12/17/2024 10:53 AM EDT [facility] Blood Blood / Unknown 12/16/2024 1 1:18 AM EDT 12/17/2024 2:51 AM EDT Narrative [facility] - 12/17/2024 10:56 AM EDT FASTING:NO PATIENT NOT FASTING; ADVISED TO RETURN FOR COLLECTION. Reference range: <100 . Desirable range <100 mg/dL for primary prevention; <70 mg/dL for patients with CHD or diabetic patients with > or = 2 CHD risk factors. . LDL-C is now calculated using the Delfino-Blair calculation, which is a validated novel method providing better accuracy than the Friedewald equation in the estimation of LDL-C. Delfino CAI et al. BERONICA. 2013;310(19): 2258-4287 (http://education.[employer]/faq/BLR816) For patients with diabetes plus 1 major ASCVD risk factor, treating to a non-HDL-C goal of <100 mg/dL (LDL-C of <70 mg/dL) is considered a therapeutic option. us Lotus [facility] - BLOOD DRAW Final Resul t [facility] [address] [address], [facility] [address] [phone] * COMPREHENSIVE METABOLIC PANEL Routine (12/16/2024 11:18 AM EDT) [facility] Signature GLUCOSE 81 65 - 139 mg/dL 12/17/2024 10:53 AM [facility] UREA NITROGEN (BUN) 11 7 - 25 mg/dL 12/17/2024 10:53 AM [facility] CREATININE (blood) 0.69 0.50 - 0.99 mg/dL 12/17/2024 10:53 AM [facility] EGFR 108 > OR = 60 mL/min/1. 73m2 12/17/2024 10:53 AM [facility] BUN/CREATININE RATIO SEE NOTE: 6 - 22 (calc) 12/17/2024 10:53 AM [facility] SODIUM 139 135 - 146 mmol/L 12/17/2024 10:53 AM [facility] POTASSIUM 4.4 3.5 - 5.3 mmol/L 12/17/2024 10:53 AM [facility] CHLORIDE 106 98 - 110 mmol/L 12/17/2024 10:53 AM [facility] CARBON DIOXIDE 21 20 - 32 mmol/L 12/17/2024 10:53 AM [facility] CALCIUM 9.2 8.6 - 10.2 mg/dL 12/17/2024 10:53 AM [facility] PROTEIN, TOTAL 6.9 6.1 - 8.1 g/dL 12/17/2024 10:53 AM [facility] ALBUMIN 4.6 3.6 - 5.1 g/dL 12/17/2024 10:53 AM [facility] GLOBULIN 2.3 1.9 - 3.7 g/dL (calc) 12/17/2024 10:53 AM [facility] ALBUMIN/GLOBULI N RATIO 2.0 1.0 - 2.5 (calc) 12/17/2024 10:53 AM [facility] BILIRUBIN, TOTAL 0.4 0.2 - 1.2 mg/dL 12/17/2024 10:53 AM [facility] ALKALINE PHOSPHATASE 40 31 - 125 U/L 12/17/2024 10:53 AM [facility] AST 16 10 - 35 U/L 12/17/2024 10:53 AM EDT [facility] ALT 17 6 - 29 U/L 12/17/2024 10:53 AM EDT [facility] Blood Blood / Unknown 12/16/2024 1 1:18 AM EDT 12/17/2024 2:51 AM EDT Narrative [facility] - 12/17/2024 10:56 AM EDT FASTING:NO PATIENT NOT FASTING; ADVISED TO RETURN FOR COLLECTION. . Non-fasting reference interval . Not Reported: BUN and Creatinine are within reference range. . us Lotus Jackson [facility] - BLOOD DRAW Final Resul t [facility] [address] [address], [employer] [address] [address] * (ABNORMAL) HEPATITIS A,B,C PANEL (10/11/2018 11:00 AM EDT) HEPATITIS B SURFACE ANTIBODY POSITIVE(A) NEGATIVE [facility] HEPATITIS B SURFACE ANTIGEN NEGATIVE NEGATIVE [facility] Comment: Over the counter supplements containing high doses of biotin may interfere with this assay. If interference is suspected, patients shoud be retested after refraining from biotin supplements for 72 hours. HEPATITIS C VIRUS DIAGNOSTIC NEGATIVE NEGATIVE [facility] HEPATITIS A ANTIBODY TOTAL NEGATIVE NEGATIVE [facility] Comment: Over the counter supplements containing high doses of biotin may interfere with this assay. If interference is suspected, patients shoud be retested after refraining from biotin supplements for 72 hours. HEPATITIS B CORE ANTIBODY NEGATIVE NEGATIVE [facility] Blood specimen (specimen) Blood / Unknown 10/11/2018 11:00 AM EDT 10/11/2018 1:45 PM EDT [facility] - 10/11/2018 4:37 PM EDT [employer], [place] [address] [employer]st Lab Analyst - Lorie Gray MD PT ID [id number] ORD# [id number] Sandra Page [facility] - BLOOD DRAW Edite d Result - Final Performing Organization Address City/[facility]/ZIP Co de Phone Number [address] [address], * FTA-ABS, SERUM (10/11/2018 11:00 AM EDT) TREPONEMAL AB NEGATIVE NEGATIVE [facility] 10/11/2018 11:0 0 AM EDT 10/11/2018 1:45 PM EDT [facility] - 10/11/2018 4:41 PM EDT [employer], [place] [address] Wastewater Analyst Lab Analyst - Lorie Gray MD PT ID [id number] ORD# [id number] Sandra Page [facility] - BLOOD DRAW Final Result Performing Organization Address [facility] Co de Phone Number [address] [address], [place] [phone] * HIV-1 & HIV-2 ANTIBODIES (10/11/2018 11:00 AM EDT) [facility] HIV 1 AND [address]ODY SCREEN NEGATIVE NEGATIVE [facility] Comment: This assay is a 4th generation assay allowing for earlier detection of HIV infection by detecting the presence of the HIV-1 p24 antigen as well as the traditional antibodies to HIV type 1 (including group O) and type 2. Use of a 4th generation assay is the current CDC recommendation for HIV screening. Blood specimen (specimen) Blood / Unknown 10/11/2018 11:00 AM EDT 10/11/2018 1:45 PM EDT [facility] - 10/11/2018 5:06 PM EDT [employer], a member of [address] [address] Wastewater Analyst Lab Analyst - Lorie Gray MD [place] ID [id number] ORD# [id number] Sandra Page [facility] - BLOOD DRAW Final Result [facility] [address] [place] [address], from Last 3 Months or Most Recently Relevant to Health Maintenance Insurance [place] [facility] Care Teams Rural Mail Contractor Relationship Specialty Start Date End Date Jose Enrique Vieira MD [address] [place] [address] PCP - General Internal Medicine 02/27/23
--- OUTSIDE RECORDS SUMMARY | 2025-01-21 14:27 | XMS_ITS | Encounter Summary ---
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 Not on file Not on file documented as of this encounter Plan of Treatment Not on file documented as of this encounter Visit Diagnoses Diagnosis Other fatigue- Primary Low zinc level documented in this encounter Additional Health Concerns Assessment Noted Time PHQ-9 Depression Total Score: 0 06/25/19 25 1:36 PM PDT A Depression follow-up plan has been documented for the patient 06/24/2024 2:57 PM PDT PHQ-2 Depression Total Score: 0 06/25/19 25 1:36 PM PDT documented as of this encounter Care Teams Medical Billing Assistant Relationship Specialty Start Date End Date Jose Enrique Vieira MD [address] [place] [address] PCP - General Internal Medicine 02/27/23 documented as of this encounter
== END 2025-01-21 13:33 | disposition home or self-care (01) ==
LOC: HO.HGI 12:41
PROVIDERS: Visit Provider Nurse Practitioner Family
DX: Z01.818 Encounter for other preprocedural examination (principal); Z12.11 Encounter for screening for malignant neoplasm of colon; K21.9 Gastro-esophageal reflux disease without esophagitis; K29.70 Gastritis, unspecified, without bleeding
CPT/HCPCS: S0285